=== PATIENT | male | born 1965 | race Caucasian/White ===

== ENCOUNTER 2020-10-28 17:09 | Emergency (ER) | payer BC, OTHER ==
[~2020-10-28] VITALS: Ht 182.9 cm; Wt 97.5 kg
[~2020-10-28 17:09] MED LIST: ASPI-858 PO; BENA40TA8 PO; FLUO10TA PO; GEMFIBROZIL; GLIP10TA11 PO; METF-380 PO
[2020-10-28 17:19] VITALS: BP_SYST 124
[2020-10-28] MEDS ORDERED: ACETAMINOPHEN 500 MG TABLET PO ONE (20:15)
[2020-10-28 22:07] VITALS: BP_SYST 125
== END 2020-10-28 22:07 | disposition home or self-care (01) ==
LOC: SED 17:09
DX: S02.40CA Maxillary fracture, right side, initial encounter for closed fracture (principal); I12.0 Hypertensive chronic kidney disease with stage 5 chronic kidney disease or end stage renal disease; N18.6 End stage renal disease; Z99.2 Dependence on renal dialysis; Z79.899 Other long term (current) drug therapy; W18.39XA Other fall on same level, initial encounter; Y93.89 Activity, other specified; Y92.89 Other specified places as the place of occurrence of the external cause; Y99.8 Other external cause status
CPT/HCPCS: 70450-TC; 70486-TC; 76376; 99285